=== PATIENT | male | born 2000 | race Two or more races ===

== ENCOUNTER 2021-02-16 14:10 | Emergency (ER) | payer OTHER ==
[~2021-02-16] VITALS: Ht 167.6 cm; Wt 66.2 kg
[2021-02-16 15:11] LABS: BASOPHILS % (AUTO) 1 % (0-1); EOSINOPHILS % (AUTO) 0 % (1-7); LYMPHOCYTES % (AUTO) 8 % (22-44); MEAN CORPUSCULAR HEMOGLOBIN 32.2 pg (27.5-34.5); MEAN CORPUSCULAR HGB CONC 34.5 g/dL (33.2-36.2); MEAN PLATELET VOLUME 7.7 fL (7.4-10.4); MONOCYTES % (AUTO) 7 % (2-9); NEUTROPHILS % (AUTO) 85 % (42-75); PLATELET COUNT 203 x10^3/uL (130-400); RED BLOOD COUNT 5.05 x10^6/uL (4.38-5.82); RED CELL DISTRIBUTION WIDTH 12.8 % (9.4-14.8)
[2021-02-16 15:22] LABS: ALANINE AMINOTRANSFERASE 31 U/L (12-78); ALBUMIN 4.1 g/dL (3.4-5.0); ANION GAP 6 mmol/L (5-15); CALCIUM 9.2 mg/dL (8.5-10.1); CHLORIDE 106 mmol/L (98-107); CREATININE 1.11 mg/dL (0.7-1.3)
[2021-02-16 15:25] LABS: ALKALINE PHOSPHATASE 91 U/L (45-117); BILIRUBIN,TOTAL 0.7 mg/dL (0.2-1.0); TOTAL PROTEIN 7.4 g/dL (6.4-8.2)
--- NOTE | 2021-02-16 16:40 | NUR ---
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
[2021-02-16 17:08] LABS: MICROSCOPIC INDICATED
[2021-02-16] MEDS ORDERED: CEFTRIAXONE 250 MG ONE (17:36)
[2021-02-16] MEDS ORDERED: DOXYCYCLINE 100MG TABLET ONE (17:36)
[2021-02-16] MEDS ORDERED: CEFTRIAXONE 1,000 MG ONE (17:41)
--- NOTE | 2021-02-16 17:58 | NUR ---
PT TO CT
--- NOTE | 2021-02-16 18:06 | NUR ---
PT BACK FROM CT
[2021-02-16] MEDS ORDERED: CEFTRIAXONE 1,000 MG IM ONE (18:30)
[2021-02-16] MEDS ORDERED: DOXYCYCLINE 100MG TABLET PO ONE (18:30)
--- NOTE | 2021-02-16 18:45 | NUR ---
REPORT TO JONAH SMITH
--- NOTE | 2021-02-16 18:48 | NUR ---
REPORT FROM EVAN MCKENZIE
[2021-02-16 18:54] VITALS: BP 110/53
--- NOTE | 2021-02-16 19:26 | NUR ---
Patient given discharge instructions and they have confirmed that they understand the instructions. Patient ambulatory with steady gait.
== END 2021-02-16 19:35 | disposition home or self-care (01) ==
LOC: ED 19:01
DX: N34.1 Nonspecific urethritis (principal)
CPT/HCPCS: 36415; 74176; 80053; 81001; 85025; 87077; 87086; 87491; 87591; 96372; 99284; J0696; 87186

== ENCOUNTER 2021-02-21 14:07 | Emergency (ER) | payer OTHER ==
[~2021-02-21] VITALS: Ht 157.5 cm; Wt 65.2 kg
[2021-02-21 15:00] VITALS: BP 106/59
--- NOTE | 2021-02-21 15:13 | NUR ---
PT REC'VD DISCHARGE INSTRUCTIONS AND EDUCATION. PT HAD NO FURTHER QUESTIONS. PT AMBULATED TO DC AREA, STEADY GAIT.
== END 2021-02-21 15:19 | disposition home or self-care (01) ==
LOC: ED 15:00
DX: N30.00 Acute cystitis without hematuria (principal)
CPT/HCPCS: 99283